=== PATIENT | female | born 2000 | race Two or more races ===

== ENCOUNTER 2023-09-29 12:31 | Emergency (ER) | payer SELFPAY ==
[~2023-09-29] VITALS: Ht 152.4 cm; Wt 61.8 kg
[2023-09-29 12:51] VITALS: BP 116/67; PULSE 88; RESP 18; O2SAT 98
[2023-09-29] MEDS ORDERED: PROPARACAINE HCL 0.5% OPTH(EYE) SOL 15ML OP ONE (16:00)
[2023-09-29] MEDS ORDERED: FLUORESCEIN SOD OPTH TEST STRIP LEFTEYE ONE (16:00)
[2023-09-29] MEDS ORDERED: BACIOIN49 OP (16:57)
== END 2023-09-29 22:00 | disposition home or self-care (01) ==
LOC: ER 12:31
DX: S05.02XA Injury of conjunctiva and corneal abrasion without foreign body, left eye, initial encounter (principal); F41.9 Anxiety disorder, unspecified; X58.XXXA Exposure to other specified factors, initial encounter; Y93.89 Activity, other specified; Y92.89 Other specified places as the place of occurrence of the external cause; Y99.8 Other external cause status

== ENCOUNTER 2023-11-15 04:09 | Emergency (ER) | payer SELFPAY ==
[~2023-11-15] VITALS: Ht 160 cm; Wt 60.9 kg
[~2023-11-15 04:09] MED LIST: BACIOIN49 OP
[2023-11-15 05:19] LABS: Basophils # (auto) 0 10 ^3/uL (0-0.2); Basophils % (auto) 0.5 % (0.0-2.0); Eosinophils # (auto) 0.1 10 ^3/uL (0-0.8); Eosinophils % (auto) 1.2 % (0.0-7.0); Hematocrit 43.9 % (36.0-46.0); Hemoglobin 14.3 g/dL (12.2-16.2); Lymphocytes # (auto) 2.1 10 ^3/uL (0.4-5.4); Lymphocytes % (auto) 30.2 % (10.0-50.0); Mean Corpuscular Hemoglobin 30.1 pg (28.0-32.0); Mean Corpuscular Hgb Conc. 32.6 g/dL (32.0-36.0); Mean Corpuscular Volume 92.3 fL (80.0-100.0); Monocytes # (auto) 0.7 10 ^3/uL (0-1.3); Monocytes % (auto) 9.6 % (0.0-12.0); Neutrophils % (auto) 58.5 % (37.0-80.0); Nucleated Red Blood Cells % 0.1 %; Red Blood Cells 4.76 10^6/uL (4.0-5.20); Red Cell Distribution Width 12.6 % (11.8-14.3); White Blood Cell 6.8 10^3/uL (4.4-10.8)
[2023-11-15 05:29] LABS: Urine Bacteria MOD /hpf (None Seen); Urine Blood Negative /uL (Negative); Urine Clarity Clear (Clear); Urine Hyaline Cast FEW /lpf (0 - 2); Urine Protein, UAD Negative (Negative); Urine Urobilinogen Normal (Negative); Urine WBC 3 /hpf (0 - 5); Urine pH 7.5 (5.0-8.0)
[2023-11-15 05:30] LABS: Urine Color Straw (Yellow)
[2023-11-15 05:35] LABS: Alanine Aminotransferase 13 U/L (7-40); Albumin 4.9 g/dL (3.2-4.8); Alkaline Phosphatase 72 U/L (46-116); Anion Gap 5 (5-15); Aspartate Aminotransferase 17 U/L (13-40); BUN/Creatinine Ratio 6.6 (10.0-20.0); Bilirubin, Total 0.7 mg/dL (0.2-1.0); Blood Urea Nitrogen 6 mg/dL (9-23); Calcium 9.4 mg/dL (8.7-10.4); Carbon Dioxide 28 mmol/L (20-30); Chloride 106 mmol/L (98-107); Glucose 86 mg/dL (74-106); Lipase 50 U/L (12-53); Potassium 3.9 mmol/L (3.5-5.1); Sodium 139 mmol/L (136-145); Total Protein 7.8 g/dL (5.7-8.2)
[2023-11-15 07:49] VITALS: BP 100/70; PULSE 72; RESP 18; TEMP 97.9; O2SAT 96
[2023-11-15] MEDS ORDERED: KETOROLAC TROMETH 30 MG/ML 1ML VIAL ONE (07:54)
[2023-11-15] MEDS ORDERED: cefTRIAXone SOD 1,000 MG VL ONE (07:54)
[2023-11-15] MEDS ORDERED: KETOROLAC TROMETH 60MG/2ML VIAL ONE (07:58)
[2023-11-15] MEDS ORDERED: KETOROLAC TROMETH 60MG/2ML VIAL IM ONE (08:00)
[2023-11-15] MEDS ORDERED: cefTRIAXone SOD 1,000 MG VL IM ONE (08:00)
[2023-11-15] MEDS ORDERED: TAMS-35 PO (08:07)
[2023-11-15] MEDS ORDERED: CIPR-173 PO (08:07)
[2023-11-15] MEDS ORDERED: IBUP-1456 PO (08:07)
== END 2023-11-15 08:15 | disposition home or self-care (01) ==
LOC: ER 04:09
DX: N20.0 Calculus of kidney (principal); R10.2 Pelvic and perineal pain; N39.0 Urinary tract infection, site not specified; F41.9 Anxiety disorder, unspecified; F32.9 Major depressive disorder, single episode, unspecified; Z79.899 Other long term (current) drug therapy
CPT/HCPCS: 36415; 74176; 80053; 81001; 81025; 83690; 83735; 84702; 85025; 96372; 99285; J0696; J1885